=== PATIENT | female | born 1950 | race Caucasian/White ===

== ENCOUNTER 2023-03-04 13:19 | Emergency (ER) | payer MEDICARE, OTHER, SELFPAY ==
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
[2023-03-04 14:35] VITALS: BP 143/81; PULSE 72; RESP 16; TEMP 36.8; O2SAT 98; BMI 27.5
[2023-03-04 17:28] VITALS: BP 165/91; PULSE 70; RESP 16; O2SAT 99
== END 2023-03-04 17:30 | disposition home or self-care (01) ==
PROVIDERS: Emergency Provider Emergency Medicine Emergency Medical Services; PCP Nurse Practitioner Family
DX: S06.0XAA Concussion with loss of consciousness status unknown, initial encounter (principal); S00.11XA Contusion of right eyelid and periocular area, initial encounter; Y04.2XXA Assault by strike against or bumped into by another person, initial encounter; Y93.89 Activity, other specified; Y92.019 Unspecified place in single-family (private) house as the place of occurrence of the external cause; Y99.9 Unspecified external cause status
CPT/HCPCS: 70450; 70486; 72125; 99284

== ENCOUNTER 2024-05-05 14:32 | Emergency (ER) | payer MEDICARE, OTHER, SELFPAY ==
[2024-05-05 14:36] VITALS: BP 150/90; PULSE 80; O2SAT 97
[2024-05-05 14:44] VITALS: BP 139/72; PULSE 61; RESP 16; TEMP 36.4; O2SAT 97; BMI 25.3
--- NOTE | 2024-05-05 16:34 | ECG_ITS ---
Test Reason : VOMITING Blood Pressure : / mmHG Vent. Rate : 065 BPM Atrial Rate : 065 BPM P-R Int : 226 ms QRS Dur : 096 ms QT Int : 416 ms P-R-T Axes : 067 -30 053 degrees QTc Int : 432 ms Sinus rhythm with 1st degree A-V block Possible Left atrial enlargement Left axis deviation Minimal voltage criteria for LVH, may be normal variant ( Gerardo product ) Abnormal ECG No previous ECGs available Referred By: Daniel Rico Electronically Signed By:MARIIA MCDUFFIE MD
--- NOTE | 2024-05-05 16:50 | ED_ITS ---
HPI - General Adult General Chief complaint: Nausea/Vomiting/Diarrhea Stated complaint: NAUSEA AND VOMITING FOR 5 HOURS Time Seen by Provider: 05/05/24 16:17 Source: patient, RN notes reviewed and old records reviewed Mode of arrival: EMS Limitations: no limitations History of Present Illness HPI narrative: 74 yo female presents following episode of vomiting this AM. She says that around 930 this AM, was eating breakfast at a restaurant and found she had no appetite. She then became nauseous and vomited for 1 hour, was unable to leave the bathroom at restaurant due to being very dizzy. per family and friends, she was incoherent while vomiting, prompting family to call EMS. She also reports an episode of diarrhea during vomiting. Denies hematemesis or hematochezia and denies syncope or fall. Denies fever, abdominal pain, systemic symptoms. Denies changes to existing medications or new medications. History of abdominal surgery includes hysterectomy. At this time she has no abdominal pain or nausea, states that she feels tired but is otherwise free from symptoms. She never had any chest pain, shortness of breath or palpitations Onset (ago): hour(s) Location: abdomen Relieving factors: none Exacerbating factors: none Associated symptoms: denies other symptoms Treatments prior to arrival: none Related Data Allergies Allergy/AdvReac Type Severity Reaction Status Date / Time morphine Allergy Unknown Verified 05/05/24 14:46 Penicillins Allergy Unknown Verified 05/05/24 14:46 Review of Systems 2 Constitutional: Constitutional: Reports as per HPI, Denies chills, Denies fatigue, Denies fever(s) and Denies headache(s) ENT: Denies headache(s) Cardiovascular: Cardiovascular: Denies chest pain and Denies dyspnea Respiratory: Respiratory: Denies cough and Denies dyspnea Gastrointestinal: Gastrointestinal: Denies abdominal pain, Denies constipation, Reports diarrhea, Reports nausea and Reports vomiting Genitourinary: Genitourinary: Denies dysuria and Denies urinary urgency Musculoskeletal: Musculoskeletal: Reports no additional musculoskeletal complaints Neurologic: Denies headache(s) and Denies focal weakness Psychiatric: Psychiatric: Reports no additional psychiatric complaints Endocrine: Endocrine: Denies fatigue PMFSH Social History Social History Alcohol intake: never Advance Directives: Yes Advance Directives Information Provided: No Advance Directives on File: No Physical Exam ED Vital Signs: Vital Signs - 24 hr 05/05/24 14:44 05/05/24 17:22 Temperature 97.6 F 98.5 F Pulse Rate 61 63 Respiratory Rate 16 18 Blood Pressure 139/72 132/64 Pulse Oximetry 97 97 Oxygen Delivery Method Room Air Room Air BMI result Body Mass Index 25.3 Const General: healthy appearing, comfortable, no acute distress, alert and awake Nutritional Appearance: well nourished Orientation/consciousness: patient oriented x3 HENMT Head: Yes normocephalic and Yes atraumatic Throat: Yes posterior oropharynx normal Eyes Eyelids: Yes eyelids normal Conjunctivae: conjunctivae normal Sclerae: sclerae normal Corneas: corneas normal Pupils: Equal, round and reactive pupils present EOM: EOMs intact bilaterally Neck Neck: Yes full ROM Resp Effort & Inspection: normal respiratory effort, able to speak in complete sentences, no audible wheezes and not labored Auscultation: clear to auscultation bilaterally Cardio Rate: regular rate Rhythm: regular rhythm GI Inspection: No distended Palpation (GI): Soft to palpation, not firm, nontender, no guarding and not rigid Auscultation: normoactive bowel sounds Skin General skin exam: no rashes or lesions noted and elasticity normal Neuro General: patient oriented x3 Cranial nerves: Yes CN's II-XII intact bilaterally, Yes Equal, round and reactive pupils present and Yes Bilaterally intact EOM present Cognition (Neuro): normal cognition Coordination: Romberg test negative Extrem Other: Moving all extremities well without any obvious deformities Medical Decision Making Medical Decision Making MDM Narrative: 74-year-old female presents for evaluation of vomiting after eating today. Her symptoms have resolved and she is currently asymptomatic. Plan for EKG to evaluate for cardiac cause of her symptoms given dizziness and diaphoresis. I do feel that NSTEMI as less likely at this time. We will check basic labs. If the patient remains asymptomatic with no significant lab abnormalities, she may likely be discharged. Differential Diagnosis Differential Diagnoses: The differential diagnosis associated with the presentation includes gastritis Gastroenteritis Heartburn Vomiting NSTEMI less likely Pancreatitis Lab Data 05/05/24 17:12 05/05/24 17:12 Labs: Lab Results 05/05/24 Range/Units 17:12 WBC 12.0 H (4.8-10.8) X10*3/uL RBC 4.77 (4.20-5.50) X10*6/uL Hgb 14.9 (12.0-16.0) g/dl Hct 42.1 (37.0-47.0) % MCV 88.3 (80.0-98.0) fL MCH 31.2 (27.0-33.0) pg MCHC 35.4 H (31.0-35.0) g/dl RDW 14.7 (11.0-16.0) % Plt Count 249 (160-400) X10*3/uL MPV 10.3 (9.4-12.3) fL Immature Gran % (Auto) 0.3 (0.0-0.4) % Neut % (Auto) 88.6 H (45-73) % Lymph % (Auto) 8.1 L (20-40) % Williams % (Auto) 2.3 (2-11) % Eos % (Auto) 0.2 (0-4) % Baso % (Auto) 0.5 (0-2) % Lymph # (Auto) 1.0 L (1.2-4.9) X10*3/uL Williams # (Auto) 0.3 (0.1-1.2) X10*3/uL Eos # (Auto) 0.0 (0.0-0.4) X10*3/uL Baso # (Auto) 0.1 (0.0-0.2) X10*3/uL Abs Immat Gran (auto) 0.04 H (0.00-0.03) X10*3/uL Absolute Neuts (auto) 10.6 H (2.0-8.3) x10*3/uL Absolute Nucleated RBC 0.000 (0.0-0.012) X10*3/uL Nucleated RBC % (auto) 0.0 (0.0-0.2) /100WBC PT 12.6 H (10.9-12.4) SEC INR 1.1 (0.9-1.1) Troponin I High Sens < 2.7 (<3.5-17.0) ng/L Independent Interpretation I performed an independent interpretation of an: EKG Interpretation: Sinus rhythm with first-degree AV block. No ST segment elevations or depression. Discharge Plan Discharge Clinical Impression: Vomiting Patient Disposition: Home, Self-Care Instructions: Acute Nausea and Vomiting (ED) Additional Instructions: Your workup in the ER today was reassuring. This includes your EKG, your labs. Your symptoms may be related to something that you 8. Follow-up with your primary doctor, return for new or worsening symptoms Print Language: Vietnamese
[2024-05-05 17:18] LABS: MANUAL DIFF FLAG NO
[2024-05-05 17:22] VITALS: BP 132/64; PULSE 63; RESP 18; TEMP 36.9; O2SAT 97
[2024-05-05 17:40] LABS: INTERNATIONAL NORM RATIO 1.1 (0.9-1.1); Prothrombin Time 12.6 SEC (10.9-12.4)
[2024-05-05 17:45] LABS: Basophils Absolute Auto 0.1 X10*3/uL (0.0-0.2); Basophils Percent Auto 0.5 % (0-2); Eosinophils Percent Auto 0.2 % (0-4); Hematocrit 42.1 % (37.0-47.0); Hemoglobin 14.9 g/dl (12.0-16.0); Imm Gran Abs Auto 0.04 X10*3/uL (0.00-0.03); Imm Gran Pct Auto 0.3 % (0.0-0.4); Lymphocytes Percent Auto 8.1 % (20-40); Mean Corpuscular HGB Conc 35.4 g/dl (31.0-35.0); Mean Corpuscular Hemoglobin 31.2 pg (27.0-33.0); Mean Corpuscular Volume 88.3 fL (80.0-98.0); Mean Platelet Volume 10.3 fL (9.4-12.3); Monocytes Absolute Auto 0.3 X10*3/uL (0.1-1.2); Monocytes Percent Auto 2.3 % (2-11); Neutrophils Absolute Auto 10.6 x10*3/uL (2.0-8.3); Neutrophils Percent Auto 88.6 % (45-73); Platelet Count 249 X10*3/uL (160-400); Red Blood Count 4.77 X10*6/uL (4.20-5.50); Red Cell Distribution Width 14.7 % (11.0-16.0)
[2024-05-05 17:49] LABS: Troponin-I High Sensitivity < 2.7 ng/L (<3.5-17.0)
[2024-05-05 18:09] LABS: Alanine Aminotransferase 20 U/L (0-31); Albumin Level 4.1 g/dL (3.5-5.0); Alkaline Phosphatase 66 U/L (39-117); Anion Gap 12 (12-20); Aspartate Amino Transferase 18 U/L (5-31); Bilirubin Total 0.3 mg/dL (0.0-1.0); Blood Urea Nitrogen 19 mg/dL (9-16); Calcium 9.5 mg/dL (8.4-10.2); Carbon Dioxide 22 mmol/L (22-29); Chloride 108 mmol/L (96-108); Creatinine Clr Calc Pharmacy 54.9; Estimated Glomerular Filt Rate > 60; Glucose Random 101 mg/dL (60-115); Lipase 34 U/L (8-78); Potassium 4.2 mmol/L (3.3-5.1); Sodium 138 mmol/L (135-145); Total Protein 6.2 g/dL (6.5-8.0)
[2024-05-05 19:06] VITALS: BP 133/71; PULSE 74; RESP 16; TEMP 36.9; O2SAT 96
== END 2024-05-05 19:07 | disposition home or self-care (01) ==
PROVIDERS: Physician Assistant; Emergency Provider Emergency Medicine; PCP Nurse Practitioner Family
DX: R11.10 Vomiting, unspecified (principal); I44.0 Atrioventricular block, first degree
CPT/HCPCS: 36415; 80053; 83690; 84484; 85025; 85610; 93005; 99283; 99284

== ENCOUNTER → 2024-05-05 16:34 | Outpatient (BNV) | payer MEDICARE, OTHER, SELFPAY | PROVIDERS: Emergency Provider Emergency Medicine; PCP Nurse Practitioner Family; Visit Provider Internal Medicine Cardiovascular Disease | DX: R94.31 Abnormal electrocardiogram [ECG] [EKG] (principal) | CPT/HCPCS: 93010 ==

== ENCOUNTER 2025-02-04 08:30 | Outpatient (RCR) | payer MEDICARE, OTHER, SELFPAY | END 2025-02-04 08:50 | disposition home or self-care (01) | LOC: HO.OT 08:30 | PROVIDERS: PCP Nurse Practitioner Family; Visit Provider Physician Assistant Surgical | DX: G56.03 Carpal tunnel syndrome, bilateral upper limbs (principal) | CPT/HCPCS: 97110; 97140; 97165; 97535 ==